=== PATIENT | male | born 1950 | race Caucasian/White ===

== ENCOUNTER 2018-05-29 14:08 | Outpatient (CLI) | payer MEDICARE, OTHER ==
[~2018-05-29] VITALS: Ht 172.7 cm; Wt 65.8 kg
[2018-05-29 14:42] LABS: BASOPHILS % (AUTO) 0 % (0-10); EOSINOPHILS # (AUTO) 0.1 10^3/uL (0.0-0.3); EOSINOPHILS % (AUTO) 1 % (0-10); HEMATOCRIT 40 % (40-54); HEMOGLOBIN 13.2 G/DL (13.3-17.7); LYMPHOCYTES # (AUTO) 2.3 X 10^3 (1.0-4.0); LYMPHOCYTES % (AUTO) 23 % (12-44); MEAN CORPUSCULAR HEMOGLOBIN 29 PG (25-34); MEAN CORPUSCULAR HGB CONC 33 G/DL (32-36); MEAN CORPUSCULAR VOLUME 88 FL (80-99); MEAN PLATELET VOLUME 10.9 FL (7.4-10.4); MONOCYTES # (AUTO) 0.9 X 10^3 (0.0-1.0); MONOCYTES % (AUTO) 9 % (0-12); NEUTROPHILS # (AUTO) 6.7 X 10^3 (1.8-7.8); NEUTROPHILS % (AUTO) 66 % (42-75); PLATELET COUNT 397 10^3/uL (130-400); RED CELL DISTRIBUTION WIDTH 14.9 % (10.0-14.5); WHITE BLOOD COUNT 10.1 10^3/uL (4.3-11.0)
[2018-05-29] MEDS ORDERED: ATEN25TA PO (14:45)
[2018-05-29] MEDS ORDERED: DICL100G18 TP (14:45)
[2018-05-29] MEDS ORDERED: ATOR80TA76 PO (14:45)
[2018-05-29] MEDS ORDERED: PREG150C PO (14:45)
[2018-05-29] MEDS ORDERED: LIPA1CAP2 PO (14:45)
[2018-05-29] MEDS ORDERED: ASPI-983 PO (14:45)
[2018-05-29] MEDS ORDERED: CELE100C84 PO (14:45)
[2018-05-29] MEDS ORDERED: OMEP20CA12 PO (14:45)
[2018-05-29 14:51] LABS: BUN/CREATININE RATIO 16; CALCIUM 9.1 MG/DL (8.5-10.1); CARBON DIOXIDE 25 MMOL/L (21-32); CHLORIDE 103 MMOL/L (98-107); CREATININE SERUM 0.74 MG/DL (0.60-1.30); GFR ESTIMATED > 60; GLUCOSE 130 MG/DL (70-105); SODIUM 137 MMOL/L (135-145)
== END 2018-05-29 14:30 | disposition home or self-care (01) ==
LOC: PREOP 14:08
PROVIDERS: ATTEND Surgery
DX: Z01.812 Encounter for preprocedural laboratory examination (principal); Z11.2 Encounter for screening for other bacterial diseases; K40.90 Unilateral inguinal hernia, without obstruction or gangrene, not specified as recurrent; R59.1 Generalized enlarged lymph nodes; R63.4 Abnormal weight loss
CPT/HCPCS: 36415; 80048; 85025; 87081

== ENCOUNTER → 2018-05-29 | Outpatient (CLI) | payer MEDICARE, OTHER ==
[~2018-05-29] MED LIST: ASPI-983 PO; ATEN25TA PO; ATOR80TA76 PO; CATHETER FLUSH 10 ML SYR IV PRN; CELE100C84 PO; DICL100G18 TP; IOHEXOL 350 MG/ML 100 ML (OMNIPAQUE 350) VIAL IV ONE; LIPA1CAP2 PO; NS 100 ML (IVPB) BAG IV ONE; OMEP20CA12 PO; PREG150C PO; RECEIVED CONTRAST (Hold Metformin) IV SCH
[2018-05-29 13:34] LABS: BUN/CREATININE RATIO 16; CREATININE SERUM 0.75 MG/DL (0.60-1.30); GFR ESTIMATED > 60
--- NOTE | 2018-05-29 14:35 | Diagnostic Imaging Report ---
PROCEDURE: CT abdomen and pelvis with and without contrast. TECHNIQUE: Precontrast acquisitions were acquired through the abdomen and pelvis. Multiple contiguous axial images were obtained through the abdomen and pelvis after the administration of intravenous contrast. INDICATION: Abdominal pain and pancreatitis. COMPARISON: No prior studies are available for comparison. FINDINGS: The lung bases are clear. No liver mass is identified. The gallbladder is unremarkable. No biliary duct dilatation is seen. Pancreas is unremarkable. No peripancreatic inflammatory stranding or peripancreatic fluid is seen. The spleen is unremarkable. No adrenal mass is detected. The kidneys are unremarkable. Aorta and iliac vessels are heavily calcified but nonaneurysmal. The small and large bowel loops are normal caliber. There is a soft tissue mass identified at the root of the mesentery measuring approximately 3.9 x 2.1 cm. There is some hazy density to the mesentery adjacent to this. No other masses are seen. There are some small bowel loops which show fairly long segment of wall thickening. Portion of the descending colon and sigmoid does extend into left inguinal hernia. No bowel structure is seen. There is marked diverticulosis of the sigmoid colon without evidence of acute diverticulitis. The bladder and prostate are unremarkable. Appendix is visualized in right lower quadrant and unremarkable. IMPRESSION: There appears to be a soft tissue mass at the root of mesentery with adjacent inflammatory stranding. This could represent a mihir mass. Diagnostic considerations would include lymphoma and abdominal desmoid. Other etiologies cannot be excluded. There is some long segment wall thickening of small bowel, nonspecific perhaps owing to enteritis. There is uncomplicated sigmoid diverticulosis. There is also left inguinal hernia containing large bowel loops. No bowel obstruction is seen. Dictated by: Dictated on workstation # [id number]
== END ==
LOC: RAD 12:26
PROVIDERS: ATTEND Surgery
DX: K57.30 Diverticulosis of large intestine without perforation or abscess without bleeding (principal); K63.89 Other specified diseases of intestine; K40.90 Unilateral inguinal hernia, without obstruction or gangrene, not specified as recurrent; R59.0 Localized enlarged lymph nodes; R63.4 Abnormal weight loss
CPT/HCPCS: 36415; 74178; 82565; 84520

== ENCOUNTER 2018-06-01 08:37 | Inpatient (IN) | payer MEDICARE, OTHER ==
[~2018-06-01] VITALS: Ht 172.7 cm; Wt 65.8 kg
[~2018-06-01 08:37] MED LIST changes: -CATHETER FLUSH 10 ML SYR IV PRN; -IOHEXOL 350 MG/ML 100 ML (OMNIPAQUE 350) VIAL IV ONE; -NS 100 ML (IVPB) BAG IV ONE; -RECEIVED CONTRAST (Hold Metformin) IV SCH
[2018-06-01] MEDS ORDERED: ceFAZolin 1,000 MG/SWFI 10 ML IV PUSH IV ONE ×2 (09:30)
[2018-06-01] MEDS: LACTATED RINGERS 1,000 ML IV PRN ×4 (09:35→14:00)
--- NOTE | 2018-06-01 09:38 | Progress Note-Pre Operative ---
Pre-Operative Progress Note H&P Reviewed The H&P was reviewed, patient examined and no changes noted. Date Seen by Provider: Jun 01, 2018 Time Seen by Provider: 09:30 Date H&P Reviewed: Jun 01, 2018 Time H&P Reviewed: 09:30 Pre-Operative Diagnosis: small bowel mass MARIA ESTHER ERNANDEZ MD Jun 01, 2018 09:38
[2018-06-01] MEDS ORDERED: CATHETER FLUSH 10 ML SYR IV PRN (09:45)
[2018-06-01] MEDS ORDERED: BUP/EPI 0.5% 1:200,000 (SENSORCAINE) 30 ML VIAL ONE (10:22)
[2018-06-01 10:34] VITALS: BP 149/80
[2018-06-01] MEDS ORDERED: proPOfol 200 MG/20 ML (DIPRIVAN) VIAL IV ONE (10:48)
[2018-06-01] MEDS ORDERED: LIDOCAINE PF 2% 5 ML (XYLOCAINE) VIAL ONE (10:48)
[2018-06-01] MEDS ORDERED: SEVOFLURANE (ULTANE) 15 ML INHAL SOLN ONE ×4 (10:48→13:36)
[2018-06-01] MEDS ORDERED: ONDANSETRON 4 MG/2 ML (SDV) Z0FRAN ONE (10:48)
[2018-06-01] MEDS ORDERED: DEXAMETHASONE 10 MG/ML (DECADRON) 1 ML VIAL ONE (10:48)
[2018-06-01] MEDS ORDERED: fentaNYL INJECTION 100 MCG/2 ML AMP ONE ×3 (10:49→13:53)
[2018-06-01] MEDS ORDERED: MIDAZOLAM 2 MG/2 ML (VERSED) VIAL ONE (10:49)
[2018-06-01] MEDS ORDERED: ROCURONIUM 10 MG/ML 5 ML SYRINGE IV ONE ×2 (13:01)
[2018-06-01] MEDS ORDERED: LACTATED RINGERS 1,000 ML IV ONE ×2 (13:01→13:35)
[2018-06-01] MEDS ORDERED: GLYCOPYRROLATE 0.2 MG/ML (ROBINUL) 2 ML VIAL ONE (13:25)
[2018-06-01] MEDS ORDERED: NEOSTIGMINE 1 MG/ML 5 ML SYRINGE ONE (13:25)
[2018-06-01] MEDS ORDERED: NS IV 1000 ML 1,000 ML IV SCH (14:03)
--- NOTE | 2018-06-01 14:03 | Progress Note-Post Operative ---
Post-Operative Progess Note Surgeon (s)/Proposal Consultant (s) Surgeon MARIA ESTHER ERNANDEZ MD Proposal Consultant: renee kolb BISQUE FINISHER Pre-Operative Diagnosis small bowel mass, symptomatic left inguinal hernia. Post-Operative Diagnosis left indirect inguinal hernia with sigmoid colon in hernia sac. large mesenteric mass with small bowel mass. Procedure & Operative Findings Date of Procedure 06/01/18 Procedure Performed/Findings laparoscopic left inguinal hernia repair with mesh, exploratory laparotomy with small bowel and mesenteric lymph node dissection. Anesthesia Type GET Estimated Blood Loss Estimated blood loss (mL): 450ml Specimens/Packing Specimens Removed small bowel MARIA ESTHER ERNANDEZ MD Jun 01, 2018 14:03
[2018-06-01] MEDS ORDERED: HYDROmorphone 2 MG/ML VIAL (DILAUDID) IV ONE (14:15)
[2018-06-01] MEDS ORDERED: diphenhydrAMINE 50 MG/ML INJ (BENADRYL) IV PRN (14:15)
[2018-06-01] MEDS ORDERED: METOCLOPRAMIDE INJ 10 MG/2 ML (REGLAN) IV PRN (14:15)
[2018-06-01] MEDS ORDERED: morphine INJ 10 MG/ML 1ML (SYR OR VIAL) IVP ONE (14:15)
[2018-06-01] MEDS ORDERED: ONDANSETRON 4 MG/2 ML (SDV) Z0FRAN IVP PRN (14:15)
[2018-06-01] MEDS ORDERED: RT-ALBUTEROL SULF 2.5 MG/3 ML PRE-MIX VIAL INH SCH (14:15)
[2018-06-01] MEDS ORDERED: ONDANSETRON 4 MG/2 ML (SDV) Z0FRAN IV PRN (14:15)
[2018-06-01] MEDS ORDERED: diphenhydrAMINE 50 MG/ML INJ (BENADRYL) IVP PRN (14:15)
[2018-06-01] MEDS ORDERED: NALOXONE 0.4 MG/ML 1 ML (NARCAN) VIAL IV PRN (14:15)
[2018-06-01] MEDS ORDERED: oxyCODONE 5 MG/5 ML ORAL SOLN (roxiCODONE) 5 ML UDC PO PRN (14:15)
[2018-06-01] MEDS ORDERED: morphine INJ 10 MG/ML 1ML (SYR OR VIAL) ONE (14:31)
--- NOTE | 2018-06-01 15:05 | NUR ---
Pt to room 432 from PACU. No complaints of pain or nausea. VSS. Dressings clean dry and intact. No questions or complaints at this time.
[2018-06-01 15:25] VITALS: BP 154/73
[2018-06-01] MEDS: 1/2 NS W/KCL 20 MEQ/L 1,000 ML IV SCH ×2 (16:19→21:35)
[2018-06-01] MEDS: meTOprolol 5 MG/5 ML (LOPRESSOR) VIAL IVP SCH ×2 (16:20→21:36)
[2018-06-01] MEDS: metroNIDAZOLE 500MG/100ML IVPB 100 ML IV SCH (16:40)
[2018-06-01] MEDS: fentaNYL INJECTION 1,000 MCG in NS (IVPB) 80 ML IV SCH (16:50)
[2018-06-01] MEDS: ceFAZolin 2 GM IV Premixed 50 ML IV SCH (18:50)
--- NOTE | 2018-06-01 19:54 | OPERATIVE REPORT ---
DATE OF SERVICE: 06/01/2018 ATTENDING PRIMARY CARE PHYSICIAN: Dr. Arie Torres. PREOPERATIVE DIAGNOSES: Weight loss, small bowel mesenteric mass, large left symptomatic reducible inguinal hernia. POSTOPERATIVE DIAGNOSES: Left reducible indirect inguinal hernia with sigmoid colon within the hernia sac. 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 PROCEDURES PERFORMED: Laparoscopic left inguinal hernia repair with mesh, diagnostic laparotomy, segmental small bowel and mesenteric resection. SURGEON: Maria Esther Ernandez MD. INSPECTOR EYEGLASS: Sathya Monroy APRN. ANESTHESIA: General endotracheal. ESTIMATED BLOOD LOSS: 450 mL. DISPOSITION: The patient tolerated the procedure well. INDICATIONS: The patient is a 68-year-old male who was initially seen for several different issues. He has a left symptomatic inguinal hernia, which has been symptomatic and has grown significantly larger in size. He also has had two episodes of diverticulitis requiring hospital admission. His last admission was on 04/17/2018. A CT scan performed which showed several loops of distended loops of small bowel as well as enhancement of the small bowel with engorgement of the mesentery. There was also significant diffuse mesenteric lymphadenopathy identified. This gentleman has a history of chronic pancreatitis and has lost approximately 60 pounds over the past three years. He does not report any red blood per rectum nor any dark tarry stools. He had an EGD and colonoscopy performed on 05/08/2018, which showed reflux esophagitis, small hiatal hernia, mild gastritis as well as a moderate severity sigmoid diverticulosis; however, no neoplasms were identified and biopsies were also benign. We have seen him back in office and he continued to have abdominal pain as well as weight loss and a CT scan was again performed, which did show the mesenteric mass still present and relatively large. DESCRIPTION OF PROCEDURE: The patient was brought to the operating room, laid supine on the table. After adequate IV pain and sedating medications and general endotracheal intubation, the abdomen was prepped and draped in standard surgical fashion. An area in the left upper abdominal quadrant was anesthetized using 0.5% Marcaine with epinephrine and a transverse skin incision made using a 15-blade. An #0 silk suture was applied in the medial aspect of the incision for traction and a Veress needle inserted with a low opening pressure of 0 mmHg and the abdomen was insufflated to 15 mmHg pressure. The Veress needle removed and a 5 mm Xcel trocar placed followed by a 5 mm 45-degree angle laparoscope visualizing the peritoneal cavity. Under visualization, we did not see any small bowel mass; however, there was a significant large mass identified within the mesentery. A large left indirect inguinal hernia was identified as well with sigmoid colon within hernia sac. There was a significant sigmoid diverticulosis also identified; however, no signs of diverticulitis. Under direct visualization, we then proceed to place an infraumbilical 10 mm port after the skin and peritoneal lining were anesthetized using 0.5% Marcaine with epinephrine and a transverse incision was made using a 15-blade. In a similar manner, a right lateral 5 mm port was placed. We first proceeded with the left inguinal hernia repair, preperitoneal approach transabdominally. The peritoneal lining was opened laterally using Sonicision. We proceeded towards the conjoint tendon and inguinal ligament. We then proceeded medially until Linus ligament was identified. We then proceeded with inferior dissection encompassing the entire hernia sac. The cord and its surrounding contents were identified and spared throughout the process. Good hemostasis was observed and a 3DMax polypropylene mesh was placed into the area of defect and tacked to Linus ligament medially and to the conjoint tendon laterally. The peritoneal lining was then placed completely over the mesh and a few absorbable tacks placed to keep this in place. We then turned our attention to the mesenteric mass. The mass was large and not amenable to laparoscopic resection due to the size of lesion as well as bleeding. It was decided to proceed with infraumbilical midline laparotomy incision. Skin was opened using a 15-blade. The subcutaneous tissue as well as the fascia and peritoneal lining were then opened under direct visualization using a cautery. The mass was identified and there was an adjacent small bowel mass and stricture identified as well. It was then decided to proceed with resection of the mesenteric mass as well as the adjacent small bowel mass in a wedge form. The mesentery was scored using electrocautery. We then proceeded with identification of the mass as well as the surrounding vasculature. The vasculature was clamped with Patti clamps, cut with Metzenbaum scissors and ligated with #0 silk sutures. Good hemostasis was observed. Encompassing the entire wedge of mesentery, we then proceeded with our dissection distally encompassing the involved small bowel which was significant approximately 60 cm in length. The small bowel at the area of good arterial perfusion was then stapled and cut using a MALATHI 55 mm blue load andrea. We then proceeded with a oclm-sf-[id number] anastomosis using the same stapler. The open end was then sutured with a 3-0 interrupted silk and stapled shut using the same MALATHI stapler. The mesentery was then closed using a 3-0 silk running suture. The peritoneal cavity was then irrigated and suctioned out. A 19-Mosotho drain was placed into the peritoneal cavity and brought out through one of the 5 mm port sites. Fascia and peritoneum were then closed under direct visualization using a #1 looped PDS suture. Skin was closed using andrea. The patient tolerated the procedure well. We will admit him to the floor and proceed with DVT prophylaxis with calf SCDs, early ambulation as well as Lovenox injections. We will also proceed with adequate pain control with fentanyl IV via EXECUTIVE SALES ASSISTANT pump. We will await bowel function and once hard signs of this is seen, we will start clear liquids and then advance as tolerated. We will also await the biopsy results. Job ID: [id number] DocumentID: [id number] Dictated Date: 06/01/2018 14:21:58 Catalyst Impregnator Date: 06/01/2018 19:54:10 Dictated By: MARIA ESTHER ERNANDEZ MD [facility]
[2018-06-01 20:06] VITALS: BP 146/74
[2018-06-01] MEDS: RT-ALBUTEROL SULF 2.5 MG/3 ML PRE-MIX VIAL INH SCH (22:00)
[2018-06-01 23:09] VITALS: BP 122/58
[2018-06-02] VITALS (7 sets, daily range): BP systolic 140–162; BP diastolic 61–78
[2018-06-02] MEDS: metroNIDAZOLE 500MG/100ML IVPB 100 ML IV SCH ×2 (00:13→09:06)
[2018-06-02] MEDS: 1/2 NS W/KCL 20 MEQ/L 1,000 ML IV SCH ×4 (00:14→23:38)
[2018-06-02] MEDS: ceFAZolin 2 GM IV Premixed 50 ML IV SCH ×2 (02:28→09:56)
[2018-06-02] MEDS: RT-ALBUTEROL SULF 2.5 MG/3 ML PRE-MIX VIAL INH SCH ×6 (02:50→21:48)
[2018-06-02 06:15] LABS: HEMOGLOBIN 10.6 G/DL (13.3-17.7); MEAN PLATELET VOLUME 10.5 FL (7.4-10.4); RED CELL DISTRIBUTION WIDTH 14.3 % (10.0-14.5); WHITE BLOOD COUNT 19.1 10^3/uL (4.3-11.0)
[2018-06-02] MEDS: PANTOPRAZOLE 40 MG (PROTONIX) TAB PO SCH (06:19)
[2018-06-02] MEDS: PANTOPRAZOLE 40 MG (PROTONIX) VIAL IV SCH (06:19)
[2018-06-02] MEDS: ENOXAPARIN 30 MG/0.3 ML (LOVENOX) SYR SC SCH ×3 (06:19→21:43)
[2018-06-02 06:39] LABS: BUN/CREATININE RATIO 14; CALCIUM 8.4 MG/DL (8.5-10.1); CARBON DIOXIDE 22 MMOL/L (21-32); CHLORIDE 104 MMOL/L (98-107); CREATININE SERUM 0.74 MG/DL (0.60-1.30); GFR ESTIMATED > 60; GLUCOSE 151 MG/DL (70-105); POTASSIUM 4.5 MMOL/L (3.6-5.0); SODIUM 135 MMOL/L (135-145)
--- NOTE | 2018-06-02 07:06 | Anesthesia-General Post-Op ---
General Patient Condition Mental Status/LOC: Same as Preop Cardiovascular: Satisfactory Nausea/Vomiting: Absent Respiratory: Satisfactory Pain: Controlled Complications: Absent Post Op Complications Complications None Follow Up Care/Instructions Patient Instructions None needed. Anesthesia/Patient Condition Patient Condition Patient is doing well, no complaints, stable vital signs, no apparent adverse anesthesia problems. No complications reported per nursing. D/C home per [facility] Criteria: ROGELIO Yadav CRNA Jun 02, 2018 07:06
[2018-06-02] MEDS: SENNA W/DOCUSATE (SENOKOT S) TABLET PO SCH (09:05)
[2018-06-02] MEDS: meTOprolol 5 MG/5 ML (LOPRESSOR) VIAL IVP SCH ×4 (09:54→21:43)
[2018-06-02] MEDS ORDERED: PIPERACILLIN/TAZO 4.5 GM/NS 100 ML IV NR ×2 (10:15)
--- NOTE | 2018-06-02 12:01 | NUR ---
received orders from dr howard, range management specialist 20mcg every 10min with 300mcg 4hr max, and percocet 10/325 every 6 hours prn orders updated
[2018-06-02] MEDS: oxyCODONE/APAP 10/325MG (PERCOCET 10) TABLET PO PRN ×2 (13:29→21:43)
[2018-06-02] MEDS ORDERED: METOCLOPRAMIDE INJ 10 MG/2 ML (REGLAN) IVP PRN (14:15)
[2018-06-02] MEDS ORDERED: ONDANSETRON 4 MG/2 ML (SDV) Z0FRAN IVP PRN (14:15)
--- NOTE | 2018-06-02 14:38 | Physical Therapy Evaluation ---
PT Evaluation-General Medical Diagnosis Admission Date Jun 02, 2018 at 08:17 Medical Diagnosis: Lymphadenopathy, L inguinal hernia Onset Date: Jun 02, 2018 Therapy Diagnosis Therapy Diagnosis: decreased mobility Height/Weight Height (Feet): 5 Height (Inches): 8.00 Weight (Pounds): 145 Weight (Ounces): 0.0 Precautions Precautions/Isolations: Fall Prevention Weight Bear Status Right Lower Extremity: Right Full Weight Bearing Left Lower Extremity: Left Full Weight Bearing Referral Physician: Dr. Agarwal Reason for Referral: Evaluation/Treatment Medical History Pertinent Medical History: CAD, GERD, HTN, Smoking Additional Medical History Chronic pancreatitis, ankylosis spondylitis Social History Home: Single Level Current Living Status: Spouse Entry Into Home: Stairs Without Railing PT Steps Into Home: 1 Prior/Core FIM Prior Level of Function Therapy Code Descriptions/Definitions Functional [place] Measure: 0=Not Assessed/NA 4=Minimal Assistance 1=Total Assistance 5=Supervision or Setup 2=Maximal Assistance 6=Modified [place] 3=Moderate Assistance 7=Complete [place] Therapy Quality Codes: 6 Independent with activity with or without an assistive device 5 Patient requires set up or clean up by helper. Patient completes activity by themselves 4 Supervision or touching assist (CGA). [place] provide cues , steadying assist 3 The helper provides less than half the effort to complete the activity 2 The helper provides more than half the effort to complete the activity 1 Dependent. The helper does all the effort to complete an activity 7 Patient refused to complete or attempt activity 9 The patient did not perform the activity before the current illness or injury 88 Not attempted due to Medical conditions or safety concerns Functional Abilities and Goals: Independent: Patient completed the activities by him/herself, with or without an assistive device, with no assistance from a helper. Needed Some Help: Patient needed partial assistance from another person to complete activities. Dependent: A helper completed the activities for the patient. Unknown: Not Applicable: Bed Mobility: 7 Transfers (B,C,W/C) (FIM): 7 Gait: 7 Stairs: 7 Indoor Mobility (Ambulation): Independent Stairs: Independent Prior Devices Use: None PT Evaluation-Current Subjective Pt in bed with spouse in room and agrees to PT. Pain Numeric Pain Scale: 10-Worst Possible Pain Location Body Site: Abdomen Pt/Family Goals Pt to return home. Objective Patient Orientation: Person, Place, Situation, Normal For Age Attachments: Drains, IV ROM/Strength ROM Lower Extremities NT Strength Lower Extremities NT Integumentary/Posture Bowel Incontinence: No Bladder Incontinence: No Neuromuscular (Tone, Coordination, Reflexes) NT Sensory Vision: Wears Glasses Hearing: Functional Sensation Lower Extremities NT Transfers Therapy Code Descriptions/Definitions Functional [place] Measure: 0=Not Assessed/NA 4=Minimal Assistance 1=Total Assistance 5=Supervision or Setup 2=Maximal Assistance 6=Modified [place] 3=Moderate Assistance 7=Complete [place] Transfers (B, C, W/C) (FIM): 3 Rollin Supine to/from Sit: 3 Sit to/from Stand: 4 limited due to pain Gait Mode of Locomotion: Walk Anticipated Mode of Locomotion: Walk Gait (FIM): 5 Distance (FIM): 3=150 ft Distance: 300' Gait Level of Assist: 5 Gait Persons Needed: 1 Gait Assistive Device: FWW Comments/Gait Description slow gait speed due to pain Balance Sitting Static: Good Sitting Dynamic: Good Standing Static: Good Standing Dynamic: Good Assessment/Needs Pt required mod A with VC for log roll to relieve pressure of abdomen during transfer. Pt is CGA for sit<>stand transfer to FWW. Pt amb 300' with FWW and SBA. Pt returned to room and is in bed with all needs met and is in the room. PT to increase activity as pt is able to tolerate. Rehab Potential: Good Post Rehab Potential-Barriers: pain PT Short Term Goals Short Term Goals Time Frame: Jun 09, 2018 Transfers (B,C,W/C) (FIM): 6 Gait (FIM): 6 Distance (FIM): 3=150 ft Gait Distance Comment: 300' Gait Level of Assist: 6 Gait Assistive Device: None, FWW PT Plan Problem List Problem List: Activity Tolerance, Functional Strength, Safety, Balance, Gait, Transfer, Bed Mobility Treatment/Plan Treatment Plan: Continue Plan of Care Treatment Plan: Bed Mobility, Education, Functional Activity Adiel, Functional Strength, Gait, Safety, Therapeutic Exercise, Transfers Treatment Duration: Jun 09, 2018 Frequency: 6 times per week Estimated Hrs Per Day: .25 hour per day Patient and/or Family Agrees t: Yes Safety Risks/Education Patient Education: Gait Training, Transfer Techniques, Correct Positioning, Safety Issues Teaching Recipient: Patient, Family Teaching Methods: Demonstration, Discussion Discharge Recommendations Therapy D/C Recommendations: Home w/ Family Support Time/GCodes Time In: 1415 Time Out: 1430 Total Billed Treatment Time: 15 Total Billed Treatment 1 visit EVL 15 min SIDRA PRESLEY PT Jun 02, 2018 14:38
--- NOTE | 2018-06-02 15:34 | Progress Note (SOAP) ---
Subjective Date Seen by a Provider: Jun 02, 2018 Time Seen by a Provider: 10:00 Subjective/Events-last exam doing well. has pain with ambulation. no bowel fxn at this time. no fever/ chills. minimal ss VIDYA drain output. Objective Exam Vital Signs Date Time Temp Pulse Resp B/P (MAP) Pulse Ox O2 Delivery O2 Flow Rate FiO2 06/02/18 13:32 162/76 (104) 06/02/18 13:04 99 06/02/18 10:50 94 Room Air 06/02/18 08:00 97.4 71 18 143/72 (95) 95 Nasal Cannula 3.00 06/02/18 07:55 Nasal Cannula 4.00 06/02/18 07:00 64 06/02/18 06:00 16 06/02/18 03:25 99.7 74 18 141/62 (88) 95 Nasal Cannula 3.00 06/02/18 02:50 97 Nasal Cannula 2.00 06/02/18 01:18 60 06/01/18 23:09 98.8 83 18 122/58 (79) 98 Nasal Cannula 3.00 06/01/18 22:00 98 Nasal Cannula 3.00 06/01/18 20:27 63 06/01/18 20:16 96 Nasal Cannula 3.00 06/01/18 20:10 Nasal Cannula 3.00 06/01/18 20:06 98.0 70 18 146/74 (98) 98 Nasal Cannula 3.00 I & O 06/02/18 07:00 Intake Total 4160 ml Output Total 2540 ml Balance 1620 ml Capillary Refill : General Appearance: No Apparent Distress HEENT: PERRL/EOMI Neck: Full Range of Motion Respiratory: Chest Non Tender, Lungs Clear Cardiovascular: Regular Rate, Rhythm Gastrointestinal: soft, tenderness, other (wound clean/dry) Extremity: Normal Capillary Refill Neurologic/Psychiatric: Alert, Oriented x3 Skin: Normal Color Lymphatic: No Adenopathy Results Lab Laboratory Tests 06/02/18 06:00: White Blood Count 19.1H, Red Blood Count 3.70L, Hemoglobin 10.6L, Hematocrit 33L , Mean Corpuscular Volume 89, Mean Corpuscular Hemoglobin 29, Mean Corpuscular Hemoglobin Concent 32, Red Cell Distribution Width 14.3, Platelet Count 396, Mean Platelet Volume 10.5H, Sodium Level 135, Potassium Level 4.5, Chloride Level 104, Carbon Dioxide Level 22, Anion Gap 9, Blood Urea Nitrogen 10, Creatinine 0.74, Estimat Glomerular Filtration Rate > 60, BUN/Creatinine Ratio 14, Glucose Level 151H, Calcium Level 8.4L Assessment/Plan Assessment/Plan Assess & Plan/Chief Complaint small bowel and mesenteric mass with large sx left inguinal hernia s/p hernia repair laparotomy with bowel and mesenteric resection. increase DRY MOLDER dose. ambulate. await bowel fxn. labs in MARIA ESTHER ERNANDEZ MD Jun 02, 2018 15:34
[2018-06-02] MEDS: PIPERACILLIN/TAZOBACTAM (BULK) 4.5 GM in NS (IVPB) 100 ML IV SCH ×2 (16:48→23:38)
[2018-06-03] MEDS: RT-ALBUTEROL SULF 2.5 MG/3 ML PRE-MIX VIAL INH SCH ×3 (01:57→10:41)
[2018-06-03 04:00] VITALS: BP 145/78
[2018-06-03] MEDS: oxyCODONE/APAP 10/325MG (PERCOCET 10) TABLET PO PRN ×3 (04:02→23:46)
[2018-06-03] MEDS: PANTOPRAZOLE 40 MG (PROTONIX) TAB PO SCH (05:18)
[2018-06-03] MEDS: PANTOPRAZOLE 40 MG (PROTONIX) VIAL IV SCH (06:15)
[2018-06-03] MEDS: 1/2 NS W/KCL 20 MEQ/L 1,000 ML IV SCH ×3 (06:36→18:14)
[2018-06-03 07:37] LABS: HEMOGLOBIN 10.3 G/DL (13.3-17.7); MEAN PLATELET VOLUME 10.4 FL (7.4-10.4); RED CELL DISTRIBUTION WIDTH 14.7 % (10.0-14.5)
[2018-06-03 07:52] LABS: BUN/CREATININE RATIO 14; CALCIUM 8.4 MG/DL (8.5-10.1); CARBON DIOXIDE 23 MMOL/L (21-32); CHLORIDE 103 MMOL/L (98-107); CREATININE SERUM 0.73 MG/DL (0.60-1.30); GFR ESTIMATED > 60; GLUCOSE 112 MG/DL (70-105); POTASSIUM 4.4 MMOL/L (3.6-5.0); SODIUM 133 MMOL/L (135-145)
[2018-06-03] MEDS: fentaNYL INJECTION 1,000 MCG in NS (IVPB) 80 ML IV SCH (07:59)
[2018-06-03 08:00] VITALS: BP 150/74
[2018-06-03] MEDS: meTOprolol 5 MG/5 ML (LOPRESSOR) VIAL IVP SCH ×4 (08:01→21:08)
[2018-06-03] MEDS: SENNA W/DOCUSATE (SENOKOT S) TABLET PO SCH (08:01)
[2018-06-03] MEDS: ENOXAPARIN 30 MG/0.3 ML (LOVENOX) SYR SC SCH ×2 (08:01→21:08)
[2018-06-03] MEDS: PIPERACILLIN/TAZOBACTAM (BULK) 4.5 GM in NS (IVPB) 100 ML IV SCH ×3 (08:01→23:46)
--- NOTE | 2018-06-03 11:24 | Consultation-Hospitalist ---
HPI History of Present Illness: HPI/Chief Complaint Pt is a 68yoCM with a PMH of HTN, ankylosing spondylitis, and HLD who was admitted under Dr Agarwal for resection of abdominal mass and hernia repair. I am consulted for medical management. He denies anycomplaints at this time. 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 No other complaints or concerns. Feels he's doing well and making progress. Source: patient Date Seen 06/03/18 Attending Physician Juancho Agarwal MD PCP Arie Torres MD Referring Physician Date of Admission Jun 02, 2018 at 08:17 Home Medications & Allergies Home Medications Reviewed patient Home Medication Reconciliation performed by pharmacy medication reconciliations health information systems technician and/or nursing. Patients Allergies have been reviewed. Allergies Allergies Coded Allergies No Known Drug Allergies (Unverified05/29/18) Past Yxwdkes-Fdbhqb-Vcvyva Hx Past Med/Social Hx: Reviewed Nursing Past Med/Soc Hx Patient Social History Marrital Status: Alcohol Use: Denies Use Recreational Drug Use: No Smoking Status: Former Smoker Former Smoker, Quit: May 10, 2018 Type Used: Cigarettes Recent Foreign Travel: No Contact w/other who traveled: No Recent Hopitalizations: No Recent Infectious Disease Expo: No Immunizations Up To Date Date of Pneumonia Vaccine: May 12, 2016 Date of Influenza Vaccine: Jan 19, 2018 Seasonal Allergies Seasonal Allergies: No Past Medical History Surgeries: Coronary Stent Cardiac: High Cholesterol, Hypertension Gastrointestinal: Pancreatitis Musculoskeletal: Arthritis, Chronic Back Pain History of Blood Disorders: No Review of Systems Constitutional: no symptoms reported EENTM: no symptoms reported Respiratory: No cough Cardiovascular: No chest pain Gastrointestinal: abdominal pain, constipation; No diarrhea, No nausea, No vomiting Genitourinary: no symptoms reported Musculoskeletal: no symptoms reported Skin: no symptoms reported Psychiatric/Neurological: No Symptoms Reported Physical Exam Physical Exam Vital Signs Vital Signs - First Documented 06/01/18 06/01/18 10:34 15:25 Temp 97.8 Pulse 52 Resp 18 B/P (MAP) 149/80 (103) Pulse Ox 98 O2 Delivery Room Air O2 Flow Rate 3.00 Capillary Refill : Height, Weight, BMI Height: 5'8.00" Weight: 145lbs. 0.0oz. 65.321412ch; 22.1 BMI Method: General Appearance: No Apparent Distress, Thin Respiratory: Lungs Clear, No Accessory Muscle Use, No Respiratory Distress Cardiovascular: Regular Rate, Rhythm, No Murmur Gastrointestinal: Soft, Abnormal Bowel Sounds (quiet), Tenderness ( appropriately) Extremity: No Pedal Edema Neurologic/Psychiatric: Alert, Oriented x3, Normal Mood/Affect Skin: Normal Color Lymphatic: No Adenopathy Results Results/Procedures Labs Laboratory Tests 06/02/18 06:00 06/03/18 07:23 Patient resulted labs reviewed. 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
--- NOTE | 2018-06-03 11:34 | Physical Therapy Daily Note ---
PT Daily Note-Current Subjective Pt agreeable. Pt denied pain at rest but rated pain 8/10 in abdomen following therapy. Pt requested bathroom privileges upon standing. Mental Status Patient Orientation: Person, Place, Situation Transfers Therapy Code Descriptions/Definitions Functional [place] Measure: 0=Not Assessed/NA 4=Minimal Assistance 1=Total Assistance 5=Supervision or Setup 2=Maximal Assistance 6=Modified [place] 3=Moderate Assistance 7=Complete [place] Therapy Quality Codes: 6 Independent with activity with or without an assistive device 5 Patient requires set up or clean up by helper. Patient completes activity by themselves 4 Supervision or touching assist (CGA). [place] provide cues , steadying assist 3 The helper provides less than half the effort to complete the activity 2 The helper provides more than half the effort to complete the activity 1 Dependent. The helper does all the effort to complete an activity 7 Patient refused to complete or attempt activity 9 The patient did not perform the activity before the current illness or injury 88 Not attempted due to Medical conditions or safety concerns Weight Bearing Right Lower Extremity: Right Full Weight Bearing Left Lower Extremity: Left Full Weight Bearing Gait Training Gait Assistive Device: FWW Pt amb with FWW x 250ft, steady speed. F/u IV Treatments BR privileges mod (I) Assessment Current Status: Good Progress Transfers in/out of bed slow and limited by pain. Pt assisted with donning abdominal belt per spouse request. Pt luke well. Pain spiked with activity, pt resting comfortably post therapy. Pt with call light in reach. PT Short Term Goals Short Term Goals Time Frame: Jun 09, 2018 Transfers (B,C,W/C) (FIM): 6 Gait (FIM): 6 Distance (FIM): 3=150 ft Gait Distance Comment: 300' Gait Level of Assist: 6 Gait Assistive Device: None, FWW PT Plan Treatment/Plan Treatment Plan: Continue Plan of Care Treatment Plan: Bed Mobility, Education, Functional Activity Adiel, Functional Strength, Gait, Safety, Therapeutic Exercise, Transfers Treatment Duration: Jun 09, 2018 Frequency: 6 times per week Estimated Hrs Per Day: .25 hour per day Patient and/or Family Agrees t: Yes Time/GCodes Time In: 1030 Time Out: 1055 Total Billed Treatment Time: 25 Total Billed Treatment 1, FA 10' Gait 15' SHERRY KENYON CPTA Jun 03, 2018 11:34
[2018-06-03 12:00] VITALS: BP 128/70
--- NOTE | 2018-06-03 12:28 | Progress Note (SOAP) ---
Subjective Date Seen by a Provider: Jun 03, 2018 Time Seen by a Provider: 11:05 Subjective/Events-last exam Patient seen with Dr. Agarwal. Patient reports doing better today but still having abdominal pain especially after ambulating. No N/V. No fever/chills. No bowel function yet. Objective Exam Vital Signs Date Time Temp Pulse Resp B/P (MAP) Pulse Ox O2 Delivery O2 Flow Rate FiO2 06/03/18 08:05 92 Room Air 06/03/18 08:00 98.2 80 16 150/74 (99) 90 Room Air 06/03/18 07:57 75 06/03/18 06:27 18 06/03/18 04:00 98.1 86 16 145/78 (100) 92 Room Air 06/03/18 01:57 93 Room Air 06/03/18 01:00 77 06/02/18 23:50 99.0 78 16 148/73 (98) 93 Room Air 06/02/18 21:48 92 Room Air 06/02/18 20:55 99.2 72 18 152/75 (100) 92 Room Air 06/02/18 20:00 Room Air 06/02/18 19:00 69 06/02/18 18:25 99.8 06/02/18 18:00 18 06/02/18 16:59 100.4 73 18 140/61 (87) 93 Room Air 06/02/18 13:32 162/76 (104) 06/02/18 13:04 99 I & O 06/03/18 07:00 Intake Total 270 ml Output Total 4605 ml Balance -4335 ml Capillary Refill : General Appearance: No Apparent Distress, WD/WN Neck: Full Range of Motion, Normal Inspection, Non Tender, Supple Respiratory: Lungs Clear, Normal Breath Sounds, No Accessory Muscle Use, No Respiratory Distress Cardiovascular: Regular Rate, Rhythm, No Murmur Gastrointestinal: soft, tenderness, other (VIDYA Drain with minimal SS drainage.) Extremity: Normal Capillary Refill, Normal Inspection, Normal Range of Motion Neurologic/Psychiatric: Alert, Oriented x3 Skin: Normal Color, Warm/Dry, Other (Abdominal Incisions C/D/I with dressings in place.) Results Lab Laboratory Tests 06/03/18 07:23: White Blood Count 16.0H, Red Blood Count 3.52L, Hemoglobin 10.3L, Hematocrit 31L , Mean Corpuscular Volume 89, Mean Corpuscular Hemoglobin 29, Mean Corpuscular Hemoglobin Concent 33, Red Cell Distribution Width 14.7H, Platelet Count 360, Mean Platelet Volume 10.4, Sodium Level 133L, Potassium Level 4.4, Chloride Level 103, Carbon Dioxide Level 23, Anion Gap 7, Blood Urea Nitrogen 10, Creatinine 0.73, Estimat Glomerular Filtration Rate > 60, BUN/Creatinine Ratio 14, Glucose Level 112H, Calcium Level 8.4L Assessment/Plan Assessment/Plan Assess & Plan/Chief Complaint A 68 year old male with small bowel and mesenteric mass with large sx left inguinal hernia s/p hernia repair laparotomy with bowel and mesenteric resection. ambulate. await bowel fxn. IV fluids, abx, pain, nausea meds. Start clear liquid diet labs in AIMEE Moreland APRN Jun 03, 2018 12:28
[2018-06-03 16:34] VITALS: BP 159/83
--- NOTE | 2018-06-03 17:14 | NUR ---
unable to scan metoprolol iv
[2018-06-03 20:13] VITALS: BP 141/80
[2018-06-03] MEDS: ATORVASTATIN 40 MG (LIPITOR) TABLET PO SCH (21:09)
[2018-06-04 00:10] VITALS: BP 143/80
[2018-06-04 04:40] VITALS: BP 135/82
[2018-06-04] MEDS: 1/2 NS W/KCL 20 MEQ/L 1,000 ML IV SCH ×3 (05:27→22:45)
[2018-06-04] MEDS: PANTOPRAZOLE 40 MG (PROTONIX) TAB PO SCH (05:32)
[2018-06-04] MEDS: PANTOPRAZOLE 40 MG (PROTONIX) VIAL IV SCH (06:04)
[2018-06-04] MEDS ORDERED: NS (IVPB) 100 ML ONE (06:47)
[2018-06-04] MEDS ORDERED: fentaNYL (OMNICELL DRIP KIT ONLY) 250 MCG/5 ML AMP ONE (06:47)
[2018-06-04 07:10] LABS: HEMOGLOBIN 11.2 G/DL (13.3-17.7); MEAN PLATELET VOLUME 10.8 FL (7.4-10.4); RED CELL DISTRIBUTION WIDTH 14.6 % (10.0-14.5); WHITE BLOOD COUNT 14.7 10^3/uL (4.3-11.0)
[2018-06-04 07:25] LABS: BUN/CREATININE RATIO 13; CALCIUM 9.1 MG/DL (8.5-10.1); CARBON DIOXIDE 24 MMOL/L (21-32); CHLORIDE 100 MMOL/L (98-107); CREATININE SERUM 0.71 MG/DL (0.60-1.30); GFR ESTIMATED > 60; GLUCOSE 80 MG/DL (70-105); POTASSIUM 4.2 MMOL/L (3.6-5.0); SODIUM 134 MMOL/L (135-145)
--- NOTE | 2018-06-04 07:27 | NUR ---
Fentanyl CADD kit pulled with ALINA Gonzalez in ICU as pharmacy mix bag was not available. Dr. Agarwal changed orders and DC fentanyl pump. Fentanyl mix pulled for drip kit wasted at 0725 in ICU by this RN and ALINA Gonzalez.
[2018-06-04] MEDS: oxyCODONE/APAP 10/325MG (PERCOCET 10) TABLET PO PRN ×4 (07:36→23:15)
[2018-06-04 08:00] VITALS: BP 146/82
[2018-06-04] MEDS: meTOprolol 5 MG/5 ML (LOPRESSOR) VIAL IVP SCH (09:35)
[2018-06-04] MEDS: SENNA W/DOCUSATE (SENOKOT S) TABLET PO SCH (09:41)
[2018-06-04] MEDS: ATENOLOL 25 MG (TENORMIN) TAB PO SCH (09:41)
[2018-06-04] MEDS: ENOXAPARIN 30 MG/0.3 ML (LOVENOX) SYR SC SCH ×2 (09:41→21:04)
[2018-06-04] MEDS: PIPERACILLIN/TAZOBACTAM (BULK) 4.5 GM in NS (IVPB) 100 ML IV SCH ×2 (09:45→17:18)
--- NOTE | 2018-06-04 11:56 | Progress Note (SOAP) ---
Subjective Date Seen by a Provider: Jun 04, 2018 Time Seen by a Provider: 10:45 Subjective/Events-last exam Patient seen with Dr. Agarwal. Patient reports doing better. Still having abdominal pain but is improving. No N/V. No Fever/chills. Passing flatus. Ambulating and tolerating diet. Objective Exam Vital Signs Date Time Temp Pulse Resp B/P (MAP) Pulse Ox O2 Delivery O2 Flow Rate FiO2 06/04/18 08:00 97.2 110 20 146/82 (103) 92 Room Air 06/04/18 07:00 98 06/04/18 04:40 98.3 85 20 135/82 (99) 91 Room Air 06/04/18 03:29 90 06/04/18 01:00 95 06/04/18 00:10 98.7 88 20 143/80 (101) 92 Room Air 06/03/18 20:13 98.0 93 20 141/80 (100) 94 Room Air 06/03/18 20:00 Room Air 06/03/18 19:00 90 06/03/18 16:34 98.0 86 20 159/83 (108) 93 Room Air 06/03/18 14:55 93 06/03/18 12:51 87 06/03/18 12:00 98.0 73 18 128/70 (89) 92 I & O 06/04/18 07:00 Intake Total 1000 ml Output Total 3825 ml Balance -2825 ml Capillary Refill : General Appearance: No Apparent Distress, WD/WN Neck: Full Range of Motion, Normal Inspection, Non Tender, Supple Respiratory: Lungs Clear, Normal Breath Sounds, No Accessory Muscle Use, No Respiratory Distress Cardiovascular: Regular Rate, Rhythm, No Murmur Gastrointestinal: normal bowel sounds, soft, tenderness, other (VIDYA drain with SS drainage.) Extremity: Normal Inspection, Normal Range of Motion Neurologic/Psychiatric: Alert, Oriented x3 Skin: Normal Color, Warm/Dry, Other (Abdominal incisions C/D/I.) Results Lab Laboratory Tests 06/04/18 06:01: White Blood Count 14.7H, Red Blood Count 3.81L, Hemoglobin 11.2L, Hematocrit 34L , Mean Corpuscular Volume 89, Mean Corpuscular Hemoglobin 29, Mean Corpuscular Hemoglobin Concent 33, Red Cell Distribution Width 14.6H, Platelet Count 421H, Mean Platelet Volume 10.8H, Sodium Level 134L, Potassium Level 4.2, Chloride Level 100, Carbon Dioxide Level 24, Anion Gap 10, Blood Urea Nitrogen 9, Creatinine 0.71, Estimat Glomerular Filtration Rate > 60, BUN/Creatinine Ratio 13, Glucose Level 80, Calcium Level 9.1 Assessment/Plan Assessment/Plan Assess & Plan/Chief Complaint A 68 year old male with small bowel and mesenteric mass with large sx left inguinal hernia s/p hernia repair laparotomy with bowel and mesenteric resection. ambulate. Passing flatus. IV fluids, abx, pain, nausea meds. Advanced to DYS2 diet. labs in am AIMEE MARTINI APRN Jun 04, 2018 11:56
[2018-06-04 12:00] VITALS: BP 131/72
[2018-06-04] MEDS ORDERED: fentaNYL INJECTION 100 MCG/2 ML AMP ONE (16:07)
[2018-06-04] MEDS ORDERED: fentaNYL INJECTION 100 MCG/2 ML AMP IVP PRN (16:15)
[2018-06-04 17:09] VITALS: BP 127/77
[2018-06-04 19:53] VITALS: BP_SYST 149; BP_SYST 181; BP_DIAS 78; BP_DIAS 79
[2018-06-04] MEDS: ATORVASTATIN 40 MG (LIPITOR) TABLET PO SCH (21:04)
[2018-06-05] VITALS: BP 161/80
[2018-06-05] MEDS: PIPERACILLIN/TAZOBACTAM (BULK) 4.5 GM in NS (IVPB) 100 ML IV SCH ×2 (00:48→07:56)
[2018-06-05 04:00] VITALS: BP 145/72
[2018-06-05] MEDS: PANTOPRAZOLE 40 MG (PROTONIX) TAB PO SCH (06:16)
[2018-06-05] MEDS: oxyCODONE/APAP 10/325MG (PERCOCET 10) TABLET PO PRN (06:16)
[2018-06-05] MEDS: 1/2 NS W/KCL 20 MEQ/L 1,000 ML IV SCH (06:16)
[2018-06-05 07:41] LABS: HEMOGLOBIN 11.3 G/DL (13.3-17.7); MEAN PLATELET VOLUME 10.5 FL (7.4-10.4); RED CELL DISTRIBUTION WIDTH 14.2 % (10.0-14.5); WHITE BLOOD COUNT 15.9 10^3/uL (4.3-11.0)
[2018-06-05 07:57] LABS: BUN/CREATININE RATIO 12; CALCIUM 9.2 MG/DL (8.5-10.1); CARBON DIOXIDE 26 MMOL/L (21-32); CHLORIDE 100 MMOL/L (98-107); CREATININE SERUM 0.76 MG/DL (0.60-1.30); GFR ESTIMATED > 60; GLUCOSE 111 MG/DL (70-105); POTASSIUM 3.7 MMOL/L (3.6-5.0); SODIUM 134 MMOL/L (135-145)
[2018-06-05 08:00] VITALS: BP 134/75
--- NOTE | 2018-06-05 08:38 | Physical Therapy Progress Note ---
Therapy Progress Note Patient is up independently and no longer requires skilled PT. PT to dismiss patient from services. PT discussed this with patient and agrees. SIDRA PRESLEY PT Jun 05, 2018 08:38
[2018-06-05] MEDS: ATENOLOL 25 MG (TENORMIN) TAB PO SCH (09:40)
[2018-06-05] MEDS: SENNA W/DOCUSATE (SENOKOT S) TABLET PO SCH (09:40)
[2018-06-05] MEDS: ENOXAPARIN 30 MG/0.3 ML (LOVENOX) SYR SC SCH (09:40)
--- NOTE | 2018-06-05 09:54 | Progress Note-Hospitalist ---
WU ANDRADE DO 06/05/18 0953: Subjective HPI/CC On Admission Date Seen by Provider: Jun 05, 2018 Time Seen by Provider: 09:30 Pt is a 68yoCM with a PMH of HTN, ankylosing spondylitis, and HLD who was admitted under Dr Agarwal for resection of abdominal mass and hernia repair. I am consulted for medical management. He denies anycomplaints at this time. He reports his pain is well controlled with [employer]AG [employer]PER[employer]> No flatus or BM yet. No other complaints or concerns. Feels he's doing well and making progress. Subjective/Events-last exam Pt doing well Tolerating soft diet Having bowel movements Incision looks good Will likely be able to discharge home if okay with the surgeon Review of Systems General: Fatigue Gastrointestinal: Abdominal Pain Objective Exam Vital Signs Vital Signs Date Time Temp Pulse Resp B/P (MAP) Pulse Ox O2 Delivery O2 Flow Rate FiO2 06/05/18 17:06 71 18 169/77 93 Room Air 3.00 06/05/18 12:00 97.4 Capillary Refill : General Appearance: No Apparent Distress, WD/WN Neck: Full Range of Motion, Normal Inspection, Non Tender, Supple Respiratory: Lungs Clear, Normal Breath Sounds, No Accessory Muscle Use, No Respiratory Distress Cardiovascular: Regular Rate, Rhythm, No Murmur Gastrointestinal: Soft, Abnormal Bowel Sounds (quiet), Tenderness ( appropriately) Extremity: Normal Inspection, Normal Range of Motion Neurologic/Psychiatric: Alert, Oriented x3 Skin: Normal Color, Warm/Dry, Other (Abdominal incisions C/D/I.) Lymphatic: No Adenopathy Results/Procedures Lab Patient resulted labs reviewed. Assessment/Plan Assessment and Plan Assess & Plan/Chief Complaint Assessment: s/p abdominal surgery Ileus post op now resolved HTN HLP [place] Plan: DC if ok with surgeon KENISHA MERCEDES MEDICAL STUDENT 06/05/18 1045: Subjective HPI/CC On Admission CC: s/p exploratory laparotomy w/ excision of mass HPI: This is 68 yo W male w/ a hx of HTN, hyperlipidemia, and ankylosing spondylitis who was admitted by Dr. Agarwal following L inguinal hernia repair and excisional laparotomy for resection of a mesenteric mass on 06/01/18. Dr. Andrade was consulted for medical management. Subjective/Events-last exam Pt reports he has had 3 meals on soft diet 1 BM yesterday, passing gas, catheter is out and he is urinating on his own Reports his abdominal pain at 4/10, denies nausea Feels he is ready for home today w/ Dr. Agarwal's approval. He lives at home w/ his , who can provide care Review of Systems General: No Chills HEENT: No Head Aches Pulmonary: No Dyspnea Cardiovascular: No: Chest Pain Gastrointestinal: Abdominal Pain; No: Nausea, Vomiting, Diarrhea, Constipation , Hematochezia Genitourinary: No Dysuria Neurological: No: Weakness Objective Exam General Appearance: No Apparent Distress, WD/WN HEENT: PERRL/EOMI, Normal ENT Inspection, Moist Mucous Membranes Neck: Full Range of Motion, Normal Inspection Respiratory: Chest Non Tender, Lungs Clear, Normal Breath Sounds, No Respiratory Distress Cardiovascular: Regular Rate, Rhythm, No Edema, No Murmur Gastrointestinal: Normal Bowel Sounds, Soft, Tenderness (appropriately), Other (Low, vertical midline incision C/D/I, no erythema) Extremity: Normal Capillary Refill, Normal Inspection, Normal Range of Motion Neurologic/Psychiatric: Alert, Oriented x3 Skin: Normal Color, Warm/Dry Lymphatic: No Adenopathy Results/Procedures Imaging: Reviewed Imaging Films, Reviewed Imaging Report Assessment/Plan Assessment and Plan Assess & Plan/Chief Complaint Assessment: Ex-lap resection of mass and L inguinal hernia repair POD#4 Hyponatremia, mild HTN HLD Ankylosing spondylitis Plan: Home today w/ Dr. Agarwal's approval F/u w/ Dr. Agarwal Abx on discharge per Dr. Agarwal and Pharmacist (Zosyn: discontinue or switch to Levaquin or Augmentin?) Diagnosis/Problems Diagnosis/Problems (1) S/P exploratory laparotomy Status: Resolved (2) Hypertension Status: Chronic Qualifiers: Hypertension type: essential hypertension Qualified Codes: I10 - Essential (primary) hypertension (3) Hyperlipidemia Status: Chronic (4) Ankylosing spondylitis Status: Chronic (5) Left inguinal hernia Status: Resolved Resolution Date/Time: 06/01/18 @ 10:54 WU ANDRADE DO Jun 05, 2018 09:53 KENISHA MERCEDES MEDICAL STUDENT Jun 05, 2018 10:45
[2018-06-05 12:00] VITALS: BP 169/77
[2018-06-05] MEDS ORDERED: HYDR-34 PO (12:32)
[2018-06-05] MEDS ORDERED: AMOX-358 PO (12:32)
--- NOTE | 2018-06-05 12:34 | Discharge Inst-Surgical ---
D/C Lap Instructions-OMA New, Converted, or Re-Newed RX: RX on Chart Follow Up Appt in 2 weeks Activity as tolerated No driving for 24 hours No [address] while on pain medications Incentive Spirometry use every 2 hours while awake Regular Diet(low residue) Symptoms to Report: Fever over 101 degree F, Nausea/Vomiting Infection Signs and Symptoms to report: Increased redness, Foul odor of wound, Increased drainage Bathing instructions: May shower Operative Area Clean/Dry; Keep incision clean/dry If any problems/questions: Contact your physician or go to Emergency Room MARIA ESTHER ERNANDEZ MD Jun 05, 2018 12:34
[2018-06-05 17:06] VITALS: BP 169/77
--- NOTE | 2018-06-06 16:47 | Physician Query Clarification ---
PQ-Link Path Diagnosis Admission/Discharge Admission Date: Jun 02, 2018 at 08:17 Discharge Date: Jun 05, 2018 at 14:50 The medical record reflects the following: mesenteric/small bowel mass The pathology report findings document: Crohn's disease Question: Do you agree with the pathology report findings? Please document a response below. PHYSICIAN RESPONSE Pathology Report Findings: Yes,agree w/path dx as documented In responding to this query, please exercise your independent professional judgment. The purpose of this communication is to more accurately reflect the complexity of your patients condition. The fact that a question is asked does not imply that any particular answer is desired or expected. Thank you for your timely response to this clarification. Requestors name: [ ] Phone # [ ] THIS PHYSICIAN QUERY FORM IS A PERMANENT PART OF THE MEDICAL RECORD MATT SOARES Jun 06, 2018 16:47 WU ANDRADE DO Jun 06, 2018 19:34
== END 2018-06-05 14:50 | disposition home or self-care (01) | DRG 345 ==
LOC: SDC 08:37 → 4TH 15:05 → SDC 06-02 08:17 → 4TH 06-05 14:50
PROVIDERS: ADMIT Surgery; ATTEND Surgery
PROC: 0DBV0ZX Excision of Mesentery, Open Approach, Diagnostic (ICD-10-PCS; 2018-06-01)
PROC: 0DB80ZX Excision of Small Intestine, Open Approach, Diagnostic (ICD-10-PCS; principal; 2018-06-01 11:17)
PROC: 0YU64JZ Supplement Left Inguinal Region with Synthetic Substitute, Percutaneous Endoscopic Approach (ICD-10-PCS; 2018-06-01 11:17)
DX: K40.30 Unilateral inguinal hernia, with obstruction, without gangrene, not specified as recurrent (principal); E87.1 Hypo-osmolality and hyponatremia; K50.014 Crohn's disease of small intestine with abscess; K91.89 Other postprocedural complications and disorders of digestive system; K57.30 Diverticulosis of large intestine without perforation or abscess without bleeding; K21.0 Gastro-esophageal reflux disease with esophagitis; K44.9 Diaphragmatic hernia without obstruction or gangrene; K29.70 Gastritis, unspecified, without bleeding; I10 Essential (primary) hypertension; E78.00 Pure hypercholesterolemia, unspecified; E78.5 Hyperlipidemia, unspecified; I25.10 Atherosclerotic heart disease of native coronary artery without angina pectoris; M45.9 Ankylosing spondylitis of unspecified sites in spine; R59.0 Localized enlarged lymph nodes; Z87.891 Personal history of nicotine dependence; Z87.19 Personal history of other diseases of the digestive system; Z53.31 Laparoscopic surgical procedure converted to open procedure
CPT/HCPCS: 36415; 80048; 85027; 88307; 94640; 94664; 94760